=== PATIENT | female | born 1965 | race Caucasian/White ===

== ENCOUNTER → 2017-05-29 | Outpatient (CLI) | payer OTHER ==
[~2017-05-29] MED LIST: DAILY VALUE1 EACH PO; EFFEXOR XR150 MG PO; GEODON60 MG PO; GLIMEPIRIDE4 MG PO; LAMICTAL150 M1 PO; LEVEMIR FL100 UNIT/1 SC; LISINOPRIL10 MG PO; LUNESTA3 MG PO; PROTONIX40 MG PO; SIMVASTATIN40 MG PO; TRAZODONE HCL150 MG PO; VICTOZA0.6 MG/0.1 SC; ZOFRAN4 MG PO; ZYRTEC10 M3 PO
== END | disposition home or self-care (01) ==
LOC: NUC 08:12
DX: K30 Functional dyspepsia (principal)
CPT/HCPCS: 78264; A9541

== ENCOUNTER → 2017-07-25 | Outpatient (CLI) | payer OTHER | END | disposition home or self-care (01) | LOC: RAD 08:49 | DX: K22.8 Other specified diseases of esophagus (principal) | CPT/HCPCS: 74220 ==

== ENCOUNTER 2017-10-30 11:16 | Day surgery (SDC) | payer OTHER ==
[~2017-10-30] VITALS: Ht 162.6 cm; Wt 122.4 kg
[~2017-10-30 11:16] MED LIST changes: +DESYREL 150 MG150 MG PO; +LANTUS 3 M100 UNITS1 SC; -LISINOPRIL10 MG PO; +LUMIGAN 0.50 DROP/22 BOTH EYES; +NOVOLOG PE100 UNITS/ SC; +PRINIVIL20 MG PO; +QNASL8.7 GM BOTH NARES
[2017-10-30 11:46] LABS: HEMATOCRIT 42.3 % (36.0-46.0); MCH 30.6 PG (29.0-34.0); MCHC 34.5 G/DL (30.0-36.0); MCV 88.7 FL (83-99); RBC DIS.WIDTH-CV 11.8 % (11.8-14.6); RBC DIS.WIDTH-SD 38.2 % (39-53); RED BLOOD COUNT 4.77 M/uL (3.80-5.20); WHITE BLOOD COUNT 9.6 K/uL (4.1-10.2)
[2017-10-30 11:48] LABS: POINT-OF-CARE METER ID UU14174212
[2017-10-30 12:08] VITALS: BP 125/59
[2017-10-30 12:10] LABS: ANION GAP 11 MEQ/L (2-14); CHLORIDE 103 MEQ/L (99-109); POTASSIUM 3.9 MEQ/L (3.7-5.4); SAMPLE HEMOLYSIS CHECK 0; SAMPLE ICTERIC CHECK 0; SAMPLE LIPEMIA CHECK 0; SODIUM 140 MEQ/L (136-147)
[2017-10-30 12:15] LABS: GFR ESTIMATE (CALCULATED) > 59 mL/min/; GLUCOSE 93 mg/dL (70-99); UREA NITROGEN (BUN) 15 mg/dL (9-23)
[2017-10-30 12:20] LABS: MEAN PLAT.VOLUME 10.8 uM^3 (9.5-12.4); PLAT.SUFFICIENCY ADEQUATE; PLATELET COUNT 229 K/uL (156-360)
[2017-10-30 12:27] LABS: ADD MIUA? YES; BILIRUBIN NEGATIVE; BLOOD NEGATIVE; COLOR YELLOW ((YELLOW)); GLUCOSE (STRIP) NEGATIVE; KETONES NEGATIVE; LEUKOCYTES NEGATIVE; NITRITE NEGATIVE; PROTEIN (STRIP) NEGATIVE; SPECIFIC GRAVITY 1.014 (1.000-1.030); UROBILINOGEN 0.2 MG/DL (0.2-1.0)
[2017-10-30 12:34] LABS: BACTERIA NONE SEEN /HPF; EPITHELIAL CELLS 2+ /HPF; MUCUS TRACE /LPF; RED BLOOD CELLS NONE SEEN /HPF (0-5); WHITE BLOOD CELLS NONE SEEN /HPF (0-5)
[2017-10-30] MEDS ORDERED: PERCOCET 5/31 TABLET PO (15:07)
[2017-10-30] MEDS ORDERED: COLACE100 MG PO (15:07)
[2017-10-30 15:53] LABS: POINT-OF-CARE METER ID UU13113675
[2017-10-30 16:10] VITALS: BP 134/74
[2017-10-30 17:15] VITALS: BP 111/55
[2017-10-30 18:36] VITALS: BP 136/74
[2017-11-04 13:12] LABS: INTERNAL CONTROL VALID? YES
== END 2017-10-30 18:45 | disposition home or self-care (01) ==
LOC: SDC 11:16
PROVIDERS: Surgery
PROC: 0FT44ZZ Resection of Gallbladder, Percutaneous Endoscopic Approach (ICD-10-PCS; principal; 2017-10-30)
DX: K80.10 Calculus of gallbladder with chronic cholecystitis without obstruction (principal); K66.0 Peritoneal adhesions (postprocedural) (postinfection); I10 Essential (primary) hypertension; F41.8 Other specified anxiety disorders; E11.9 Type 2 diabetes mellitus without complications; K21.9 Gastro-esophageal reflux disease without esophagitis; E78.5 Hyperlipidemia, unspecified; Z79.4 Long term (current) use of insulin
CPT/HCPCS: 80048; 81003; 82948; 84703; 85027; 88304; J0330; J1170; J2250; J2405; J2710; J2765; J3010; Q0175; S0074